=== PATIENT | male | born 1985 | race Asian ===

== ENCOUNTER 2016-07-02 19:40 | Emergency (ER) | payer OTHER ==
[~2016-07-02] VITALS: Ht 167.6 cm; Wt 81.6 kg
[2016-07-02] MEDS ORDERED: ONDANSETRON HCL/PF 4 MG/2 ML VIAL ONE (20:07)
[2016-07-02] MEDS ORDERED: MORPHINE SULFATE INJ 4 MG/ML DISP.SYRIN ONE (20:07)
--- NOTE | 2016-07-02 20:21 | NUR ---
BIB SELF, CC: RIGHT ELBOW DEFORMITY FROM FALL, NO OTHER PERTINENT MEDICAL HISTORY, PATIENT IS VERBALLY RESPONSIVE, A/O X4,
[2016-07-02] MEDS ORDERED: ONDANSETRON 4 MG TAB.RAPDIS SL ONE (20:30)
[2016-07-02] MEDS ORDERED: MORPHINE SULFATE INJ 2 MG/ML DISP.SYRIN IM ONE (20:30)
[2016-07-02] MEDS ORDERED: MORPHINE SULFATE INJ 2 MG/ML DISP.SYRIN IV ONE (21:00)
[2016-07-02] MEDS ORDERED: ONDANSETRON HCL/PF 4 MG/2 ML VIAL IV ONE (21:00)
[2016-07-02] MEDS ORDERED: PROPOFOL 0 ML IV ONE (21:27)
[2016-07-02] MEDS ORDERED: KETAMINE HCL (500MG/10ML) 50 MG/ML VIAL IV ONE (21:30)
[2016-07-02] MEDS ORDERED: PROPOFOL 20 ML IV ONE (21:43)
[2016-07-02] MEDS ORDERED: PROPOFOL 200 MG/20 ML VIAL IV ONE (22:00)
--- NOTE | 2016-07-02 22:45 | NUR ---
CALLED DR.NUSSBAUM [facility], TRANSFERRED CALL TO DR. CHRISTIE
[2016-07-03 01:22] VITALS: BP 125/77
--- NOTE | 2016-07-03 01:22 | NUR ---
IV removed. Catheter intact and site benign. Pressure and 4x4 applied to site. No bleeding noted.Patient discharged to home in stable condition. Written and verbal after care instructions given. Patient verbalizes understanding of instruction.
== END 2016-07-03 01:23 | disposition home or self-care (01) ==
LOC: ER 19:43
DX: S53.004A Unspecified dislocation of right radial head, initial encounter (principal); W18.39XA Other fall on same level, initial encounter; Y93.39 Activity, other involving climbing, rappelling and jumping off; Y92.89 Other specified places as the place of occurrence of the external cause; Y99.9 Unspecified external cause status
CPT/HCPCS: 24655; 73070 ×2; 73100; 73110; 96374; 96375; 99152; 99285; A4606; J2270; J2405; J2704; Z7610